=== PATIENT | male | born 1975 | race Caucasian/White ===

== ENCOUNTER 2018-12-25 08:46 | Day surgery (SDC) | payer OTHER ==
[2018-12-25] MEDS ORDERED: LACTATED RINGERS 1,000 ML IV ONE ×2 (09:33→09:48)
[2018-12-25] MEDS ORDERED: fentaNYL 250 MCG/5 ML VIAL IVP ONE (09:48)
[2018-12-25] MEDS ORDERED: MIDAZOLAM 2 MG/2 ML VIAL IVP ONE (09:48)
[2018-12-25] MEDS ORDERED: PROPOFOL 200 MG/20 ML VIAL IVP ONE (09:48)
--- NOTE | 2018-12-25 10:15 | ANESTHESIA ---
Pre-Anesthesia VS, & Labs - Diagnosis rectal bleeding - Procedure colonoscopy Vital Signs: Temp Pulse Resp BP Pulse Ox 36.8 C 65 16 130/87 H 100 12/25/18 09:01 12/25/18 09:01 12/25/18 09:01 12/25/18 09:01 12/25/18 09:01 Height 5 ft 10 in Weight (kg) 66.4 kg - NPO >8 hours Anes History & Medical History - Anesthetic History Anesthesia Complications: reports: No previous complications - Medical History Cardiovascular: reports: None Pulmonary: reports: None Gastrointestinal: reports: GI bleed Urinary: reports: Kidney stones Musculoskeletal: reports: None Endocrine/Autoimmune: reports: None Skin: reports: None - Surgical History Orthopedic:  Dermatologic: Debridement Plan Anesthesia Type: MAC (called in for rescue sedation, report from RN. unable to obtain consent) Consent for Procedure(s) Verified and Reviewed: No Code Status: Attempt Resuscitation ASA classification: 2-Mild systemic disease Is this case an emergency?: No
--- NOTE | 2018-12-25 10:44 | OPERATIVE REPORT ---
Operative Report - General Procedure Date: 12/25/18 Planned Procedure: colonoscopy Pre-Op Diagnosis: bleeding Procedure Performed: same Post Op Diagnosis: normal - Procedure Note Primary Surgeon: skip Anesthesia Technique: MAC - Other Other Information/Narrative: The pt was brought into the OR and a timeout performed. Sedation was given. A well lubricated colonoscope was advanced into the rectal vault. The scope was advanced to the cecum. Prep was good. The appendiceal orifice and IC valve were identified. The scope was then slowly withdrawn while insufflating. Visualization was good. A few small diverticuli were seen in the sigmoid colon, but otherwise no abnormalities were seen. The scope was retroflexed at the anal verge, then withdrawn completely. No enlarged hemorrhoids. The pt tolerated the procedure well and was taken to recovery in good condition.
[2018-12-25 11:45] VITALS: BP 121/73
== END 2018-12-25 08:47 | disposition home or self-care (01) ==
LOC: SDS 08:46
PROVIDERS: ATTEND Surgery
PROC: 0DJD8ZZ Inspection of Lower Intestinal Tract, Via Natural or Artificial Opening Endoscopic (ICD-10-PCS; principal; 2018-12-25 10:00)
DX: K57.31 Diverticulosis of large intestine without perforation or abscess with bleeding (principal); R10.32 Left lower quadrant pain; I10 Essential (primary) hypertension
CPT/HCPCS: 45378; J3010; J7120

== ENCOUNTER 2021-05-21 09:57 | Outpatient (CLI) | payer BC ==
[2021-05-21 10:50] LABS: BASOPHILS % (AUTO) 0.4 %; EOSINOPHILS # (AUTO) 0.2 10^3/uL (0.0-0.7); EOSINOPHILS % (AUTO) 3.3 %; HGB - HEMOGLOBIN 15.4 g/dL (14.0-18.0); LYMPHOCYTES # (AUTO) 1.5 10^3/uL (1.5-3.5); LYMPHOCYTES % (AUTO) 28.5 %; MEAN CORPUSCULAR HEMOGLOBIN 30.6 pg (27.0-31.0); MEAN CORPUSCULAR VOLUME 87.5 fL (80.0-94.0); MEAN PLATELET VOLUME 9.2 fL (7.4-11.4); MONOCYTES # (AUTO) 0.4 10^3/uL (0.0-1.0); MONOCYTES % (AUTO) 6.5 %; NEUTROPHILS # (AUTO) 3.3 10^3/uL (1.5-6.6); NEUTROPHILS % (AUTO) 61.1 %; PLT - PLATELET COUNT 262 10^3/uL (130-450); RED BLOOD COUNT 5.03 10^6/uL (4.70-6.10); RED CELL DISTRIBUTION WIDTH 11.9 % (12.0-15.0); WHITE BLOOD COUNT 5.4 x10^3/uL (4.8-10.8)
--- NOTE | 2021-05-21 11:53 | XRAY Report ---
PROCEDURE: Hand 2 View BILAT INDICATIONS: PAIN IN JOINTS BILATERAL TECHNIQUE: 2 views of the hand(s) acquired. COMPARISON: None FINDINGS: Bones: No fractures or dislocations. No suspicious bony lesions. No erosions or proliferative lobo ges. Soft tissues: No suspicious soft tissue calcifications. IMPRESSION: Normal bilateral hands. No evidence of inflammatory arthropathy or degenerative changes. Reviewed by: Isidro Limon on 05/21/2021 11:51 AM PDT Approved by: Isidro Limon on 05/21/2021 11:51 AM PDT Station ID: [id number]
[2021-05-21 15:39] LABS: RHEUMATOID FACTOR NEGATIVE (Negative)
[2021-05-25 14:42] LABS: ANA SCREEN POSITIVE (NEGATIVE)
[2021-05-25 15:21] LABS: ALBUMIN 4.5 g/dL (3.8-4.8); ALPHA 1 GLOBULIN 0.2 g/dL (0.2-0.3); ALPHA 2 GLOBULIN 0.5 g/dL (0.5-0.9); BETA 1 GLOBULIN 0.4 g/dL (0.4-0.6); BETA 2 GLOBULIN 0.2 g/dL (0.2-0.5); GAMMA GLOBULIN 0.7 g/dL (0.8-1.7)
[2021-05-25 17:27] LABS: CYCLIC CITRULL PEPTIDE CCP IGG <16 UNITS
[2021-05-25 19:31] LABS: DNA (DS) ANTIBODY 1 IU/mL
== END 2021-05-21 09:58 | disposition home or self-care (01) ==
LOC: DI 09:57
PROVIDERS: ATTEND Nurse Practitioner Family
DX: M25.542 Pain in joints of left hand (principal); M25.541 Pain in joints of right hand
CPT/HCPCS: 36415; 84155; 84165; 85025; 85651; 86038; 86140; 86200; 86225; 86430

== ENCOUNTER 2021-08-04 19:13 | Outpatient (CLI) | payer BC | END 2021-08-04 19:14 | disposition EMS.NT | LOC: EMS 19:13 | DX: R55 Syncope and collapse (principal) ==

== ENCOUNTER 2021-08-04 20:03 | Emergency (ER) | payer BC ==
[2021-08-04 20:44] LABS: BASOPHILS % (AUTO) 0.2 %; EOSINOPHILS # (AUTO) 0.1 10^3/uL (0.0-0.7); EOSINOPHILS % (AUTO) 1.1 %; HCT - HEMATOCRIT 44.9 % (42.0-52.0); HGB - HEMOGLOBIN 15.7 g/dL (14.0-18.0); LYMPHOCYTES # (AUTO) 1.6 10^3/uL (1.5-3.5); LYMPHOCYTES % (AUTO) 16.5 %; MEAN CORPUSCULAR HEMOGLOBIN 30.4 pg (27.0-31.0); MEAN CORPUSCULAR VOLUME 86.8 fL (80.0-94.0); MEAN PLATELET VOLUME 8.9 fL (7.4-11.4); MONOCYTES # (AUTO) 0.6 10^3/uL (0.0-1.0); MONOCYTES % (AUTO) 5.8 %; NEUTROPHILS # (AUTO) 7.5 10^3/uL (1.5-6.6); NEUTROPHILS % (AUTO) 76.2 %; PLT - PLATELET COUNT 296 10^3/uL (130-450); RED BLOOD COUNT 5.17 10^6/uL (4.70-6.10); RED CELL DISTRIBUTION WIDTH 11.6 % (12.0-15.0); WHITE BLOOD COUNT 9.8 x10^3/uL (4.8-10.8)
[2021-08-04 20:47] VITALS: BP 105/69
[2021-08-04 20:55] LABS: ALBUMIN 4.6 g/dL (3.2-5.5); ALBUMIN/GLOBULIN RATIO 1.9 (1.0-2.2); BILIRUBIN,TOTAL 1.3 mg/dL (0.2-1.0); CALCIUM 9.4 mg/dL (8.5-10.3)
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
--- NOTE | 2021-08-04 21:07 | XRAY Report ---
PROCEDURE: Chest 1 View X-Ray INDICATIONS: Chest Pain TECHNIQUE: One view of the chest was acquired. COMPARISON: None FINDINGS: Surgical changes and devices: None. Lungs and pleura: No pleural effusions or pneumothorax. Lungs are clear. Mediastinum: Mediastinal contours appear normal. Heart size is normal. Bones and chest wall: No suspicious bony lesions. Overlying soft tissues appear unremarkable. IMPRESSION: No acute cardiopulmonary disease process. Reviewed by: Alessia Clark MD, PhD on 08/04/2021 9:05 PM PDT Approved by: Alessia Clark MD, PhD on 08/04/2021 9:05 PM PDT Station ID: [id number]
== END 2021-08-04 21:30 | disposition home or self-care (01) ==
LOC: ED 20:03
DX: R55 Syncope and collapse (principal); I10 Essential (primary) hypertension; F17.200 Nicotine dependence, unspecified, uncomplicated
CPT/HCPCS: 36415; 80053; 83690; 84484; 85025; 93005; 99284